=== PATIENT | male | born 1965 | race Caucasian/White ===

== ENCOUNTER 2017-07-28 05:03 | Emergency (ER) | payer OTHER ==
[~2017-07-28] VITALS: Ht 157.5 cm; Wt 59.0 kg
--- NOTE | 2017-07-28 05:03 | NUR ---
Patient [place] [facility] [employer] to be evaluated as pre-book, transferred to [facility]. RN evaluating patient.
[2017-07-28 05:05] VITALS: BP 158/83
[2017-07-28 06:10] VITALS: BP 144/77
--- NOTE | 2017-07-28 06:10 | NUR ---
Patient discharged with v/s stable. Written and verbal after care instructions given and explained. Patient verbalized understanding. Police with in custody. All questions addressed prior to discharge. Advised to follow up with PMD.
[2017-07-29 15:12] LABS: HEPATITIS B SURFACE ANTIGEN Negative (Negative)
== END 2017-07-28 06:10 | disposition home or self-care (01) ==
LOC: MED 05:03
DX: Z02.89 Encounter for other administrative examinations (principal); Z77.21 Contact with and (suspected) exposure to potentially hazardous body fluids
CPT/HCPCS: 36415; 86592; 86702; 86803; 87340; 99283; 99284